=== PATIENT | female | born 1935 | race Caucasian/White ===

== ENCOUNTER 2020-02-01 04:36 | Observation (INO) ==
[2020-02-01 06:01] LABS: ALT 15 U/L (7-52); AST 25 U/L (13-39); Albumin 3.5 g/dL (3.2-5.2); Albumin/Globulin Ratio 1.3 (1-3); Alkaline Phosphatase 50 U/L (34-104); Anion Gap 9 mmol/L (2-11); BUN/Creatinine Ratio 20.6 (8-20); Blood Urea Nitrogen 20 mg/dL (6-24); CO2 Carbon Dioxide 27 mmol/L (22-32); Chloride 105 mmol/L (101-111); EGFR Non-African American 54.6 (>60); Globulin 2.6 g/dL (2-4); Glucose 91 mg/dL (70-100); Potassium 3.6 mmol/L (3.5-5.0); Sodium 141 mmol/L (135-145); Total Protein 6.1 g/dL (6.4-8.9)
[2020-02-01 06:04] LABS: ABS Eosinophils 0.1 10^3/ul (0-0.6); ABS Lymphocytes 0.6 10^3/ul (1.0-4.8); ABS Monocytes 0.5 10^3/ul (0-0.8); ABS Neutrophils 4.7 10^3/ul (1.5-7.7); Eosinophil % 1.7 %; Hematocrit 15 % (35-47); Hemoglobin 5.1 g/dL (12.0-16.0); Lymphocyte % 9.9 %; Mean Corpuscular HGB Conc 34 g/dL (31-36); Mean Corpuscular Hemoglobin 32 pg (27-31); Mean Corpuscular Volume 95 fL (80-97); Mean Platelet Volume 9.4 fL (7.4-10.4); Nucleated Red Blood Cells % 0.1; Red Blood Count 1.57 10^6 /uL (3.70-4.87); Red Cell Distribution Width 15 % (10-15); White Blood Count 5.8 10^3/uL (3.5-10.8)
[2020-02-01 06:07] LABS: Troponin I 0.05 ng/mL (<0.03)
[2020-02-01 07:31] LABS: ABS Basophils 0.1 10^3/ul (0-0.2); ABS Eosinophils 0.2 10^3/ul (0-0.6); ABS Lymphocytes 1.5 10^3/ul (1.0-4.8); ABS Monocytes 1.3 10^3/ul (0-0.8); ABS Neutrophils 11.5 10^3/ul (1.5-7.7); Eosinophil % 1.3 %; Hematocrit 34 % (35-47); Hemoglobin 11.2 g/dL (12.0-16.0); Lymphocyte % 10.1 %; Mean Corpuscular HGB Conc 33 g/dL (31-36); Mean Corpuscular Hemoglobin 31 pg (27-31); Mean Corpuscular Volume 93 fL (80-97); Mean Platelet Volume 11.3 fL (7.4-10.4); Platelet Count 108 10^3/uL (150-450); Red Blood Count 3.66 10^6 /uL (3.70-4.87); Red Cell Distribution Width 15 % (10-15); White Blood Count 14.6 10^3/uL (3.5-10.8)
[2020-02-01 09:21] LABS: Troponin I 0.17 ng/mL (<0.03)
[2020-02-01] MEDS ORDERED: Iodixanol (CONTRAST) 320 MG/ML 100 ML SDV IV ONE (10:27)
[2020-02-01 11:37] LABS: INR 2.82 (0.82-1.09)
[2020-02-01 12:08] LABS: Troponin I 0.21 ng/mL (<0.03)
[2020-02-01] MEDS ORDERED: Heparin DRIP 25,000 UNITS BAG 25,000 UNITS/500 ML BAG IV SCH (14:45)
[2020-02-01] MEDS ORDERED: Heparin 5000 UNITS/ML 1 mL VIAL IV SCH (15:00)
[2020-02-01 15:19] LABS: Cholesterol 140 mg/dL; HDL Cholesterol 59.9 mg/dL; LDL Cholesterol 69 mg/dL; Triglycerides 58 mg/dL
[2020-02-01 15:21] LABS: Troponin I 0.13 ng/mL (<0.03)
[2020-02-01 15:55] LABS: ABS Basophils 0.1 10^3/ul (0-0.2); ABS Eosinophils 0.3 10^3/ul (0-0.6); ABS Lymphocytes 1.7 10^3/ul (1.0-4.8); ABS Monocytes 0.9 10^3/ul (0-0.8); ABS Neutrophils 7.7 10^3/ul (1.5-7.7); Eosinophil % 2.6 %; Hematocrit 37 % (35-47); Hemoglobin 12.2 g/dL (12.0-16.0); Lymphocyte % 15.6 %; Mean Corpuscular HGB Conc 33 g/dL (31-36); Mean Corpuscular Hemoglobin 31 pg (27-31); Mean Corpuscular Volume 94 fL (80-97); Red Blood Count 3.98 10^6 /uL (3.70-4.87); Red Cell Distribution Width 15 % (10-15); White Blood Count 10.7 10^3/uL (3.5-10.8)
[2020-02-01 16:19] LABS: EGFR African American 69.3 (>60); EGFR Non-African American 57.3 (>60)
[2020-02-01 16:42] LABS: Platelet Count Platelets clumped. 10^3/uL (150-450)
[2020-02-02 04:42] LABS: Hematocrit 34 % (35-47); Hemoglobin 11.2 g/dL (12.0-16.0); Mean Corpuscular HGB Conc 33 g/dL (31-36); Mean Corpuscular Hemoglobin 31 pg (27-31); Mean Corpuscular Volume 93 fL (80-97); Red Blood Count 3.63 10^6 /uL (3.70-4.87); Red Cell Distribution Width 15 % (10-15); White Blood Count 6.7 10^3/uL (3.5-10.8)
[2020-02-02 04:44] LABS: Activated Partial Thrombo Time 86.7 seconds (26.0-38.0); INR 2.46 (0.82-1.09)
[2020-02-02 04:52] LABS: BUN/Creatinine Ratio 20.5 (8-20); Calcium 8.7 mg/dL (8.6-10.3); EGFR African American 79.1 (>60); EGFR Non-African American 65.3 (>60); Potassium 3.9 mmol/L (3.5-5.0)
[2020-02-02 05:17] LABS: ABS Basophils 0.1 10^3/ul (0-0.2); ABS Eosinophils 0.4 10^3/ul (0-0.6); ABS Lymphocytes 1.6 10^3/ul (1.0-4.8); ABS Monocytes 0.5 10^3/ul (0-0.8); ABS Neutrophils 4.1 10^3/ul (1.5-7.7); Eosinophil % 5.7 %; Lymphocyte % 24.1 %; Platelet Count Platelets clumped. 10^3/uL (150-450)
[2020-02-02 07:55] LABS: Platelet Count Platelets clumped. 10^3/uL (150-450)
[2020-02-02] MEDS: Aspirin EC 81 mg TAB.EC (enteric coated) PO SCH (10:01)
[2020-02-03 06:00] LABS: INR 1.76 (0.82-1.09)
[2020-02-03] MEDS: Aspirin EC 81 mg TAB.EC (enteric coated) PO SCH (09:38)
[2020-02-03 11:30] VITALS: BP 126/53
== END 2020-02-03 15:00 | disposition home or self-care (01) ==
LOC: MED 04:36 → ED 04:36 → MED 14:58 → MEDTELE 02-02 06:13
PROVIDERS: ADMIT Internal Medicine; ATTEND Internal Medicine

== ENCOUNTER 2021-06-13 16:27 | Observation (INO) ==
[2021-06-13 19:49] LABS: INR 1.75 (0.86-1.15)
[2021-06-13 20:07] LABS: Hematocrit 31 % (35-47); Hemoglobin 9.8 g/dL (12.0-16.0); Mean Corpuscular HGB Conc 32 g/dL (31-36); Mean Corpuscular Hemoglobin 27 pg (27-31); Mean Corpuscular Volume 84 fL (80-97); Red Blood Count 3.68 10^6 /uL (3.70-4.87); Red Cell Distribution Width 17 % (10-15); White Blood Count 7.8 10^3/uL (3.5-10.8)
[2021-06-13 20:21] LABS: Albumin 3.6 g/dL (3.2-5.2); Albumin/Globulin Ratio 1.9 (1-3); C Reactive Protein 6.66 mg/L (<8.01); Calcium 9.3 mg/dL (8.6-10.3); Globulin 1.9 g/dL (2-4); Potassium 4.3 mmol/L (3.5-5.0); Total Bilirubin 0.8 mg/dL (0.2-1.0); Total Protein 5.5 g/dL (6.4-8.9); eGFR CKD-EPI 64.8 (>60)
[2021-06-13 20:32] LABS: ABS Basophils 0.1 10^3/ul (0-0.2); ABS Monocytes 0.5 10^3/ul (0-0.8); ABS Neutrophils 6.2 10^3/ul (1.5-7.7); Eosinophil % 0.1 %; Lymphocyte % 12.3 %; Nucleated Red Blood Cells % 0.1; Platelet Count Platelets clumped. 10^3/uL (150-450)
[2021-06-13 21:33] LABS: High Sensitivity Troponin 1 Hr 50 pg/mL (<15)
[2021-06-13] MEDS ORDERED: Furosemide 20 mg/2 ml IV VIAL IV ONE (23:00)
[2021-06-13] MEDS ORDERED: Nitro 2% OINT (Nitroglycerin) 1 INCH/PAK TOPICAL ONE (23:21)
[2021-06-13 23:45] LABS: High Sensitivity Troponin 3 Hr 66 pg/mL (<15)
[2021-06-14 05:50] LABS: Urine Appearance Clear; Urine Bilirubin Negative (Negative); Urine Blood Negative (Negative); Urine Color Straw; Urine Glucose Negative (Negative); Urine Ketones Negative (Negative); Urine Nitrite Negative (Negative); Urine Protein Negative (Negative); Urine Specific Gravity 1.005 (1.002-1.030); Urine Urobilinogen Negative (Negative)
[2021-06-14 05:56] LABS: ABS Eosinophils 0.1 10^3/ul (0-0.6); ABS Lymphocytes 1.7 10^3/ul (1.0-4.8); ABS Monocytes 0.9 10^3/ul (0-0.8); ABS Neutrophils 5.7 10^3/ul (1.5-7.7); Eosinophil % 0.7 %; Hematocrit 29 % (35-47); Hemoglobin 9.4 g/dL (12.0-16.0); Mean Corpuscular HGB Conc 33 g/dL (31-36); Mean Corpuscular Hemoglobin 27 pg (27-31); Mean Corpuscular Volume 83 fL (80-97); Nucleated Red Blood Cells % 0.1; Red Blood Count 3.44 10^6 /uL (3.70-4.87); Red Cell Distribution Width 17 % (10-15); White Blood Count 8.3 10^3/uL (3.5-10.8)
[2021-06-14 06:26] LABS: Calcium 8.9 mg/dL (8.6-10.3); Potassium 3.9 mmol/L (3.5-5.0); eGFR CKD-EPI 55.5 (>60)
[2021-06-14 07:17] LABS: Platelet Count Platelets clumped. 10^3/uL (150-450)
[2021-06-14] MEDS: Cholecalciferol (VIT D3) 1,000 unit TAB PO SCH (08:24)
[2021-06-14] MEDS: Aspirin EC 81 mg TAB.EC (enteric coated) PO SCH (08:24)
[2021-06-14] MEDS ORDERED: Furosemide 20 mg/2 ml IV VIAL IV ONE (17:27)
[2021-06-15 07:09] LABS: ABS Eosinophils 0.1 10^3/ul (0-0.6); ABS Lymphocytes 1.8 10^3/ul (1.0-4.8); ABS Monocytes 0.8 10^3/ul (0-0.8); Hematocrit 32 % (35-47); Hemoglobin 10.2 g/dL (12.0-16.0); Lymphocyte % 23.5 %; Mean Corpuscular HGB Conc 32 g/dL (31-36); Mean Corpuscular Hemoglobin 27 pg (27-31); Mean Corpuscular Volume 84 fL (80-97); Red Blood Count 3.78 10^6 /uL (3.70-4.87); Red Cell Distribution Width 17 % (10-15); White Blood Count 7.6 10^3/uL (3.5-10.8)
[2021-06-15 07:17] LABS: Potassium 3.7 mmol/L (3.5-5.0); eGFR CKD-EPI 71.7 (>60)
[2021-06-15 07:46] LABS: Platelet Count Platelets clumped. 10^3/uL (150-450)
[2021-06-15] MEDS: Cholecalciferol (VIT D3) 1,000 unit TAB PO SCH (09:24)
[2021-06-15] MEDS: Aspirin EC 81 mg TAB.EC (enteric coated) PO SCH (09:25)
[2021-06-15 12:20] VITALS: BP 120/72
== END 2021-06-15 14:08 | disposition home or self-care (01) ==
LOC: EDHOLD 16:27 → ED 16:27 → SUATTDRO 22:22 → EDHOLD 06-14 09:50 → MEDTELE 06-14 11:49
PROVIDERS: ADMIT Hospitalist; ATTEND Internal Medicine

== ENCOUNTER 2021-07-15 08:50 | Inpatient (IN) ==
[2021-07-15 09:30] LABS: ABS Lymphocytes 0.6 10^3/ul (1.0-4.8); ABS Monocytes 0.5 10^3/ul (0-0.8); ABS Neutrophils 9.3 10^3/ul (1.5-7.7); Eosinophil % 0.3 %; Hematocrit 29 % (35-47); Hemoglobin 8.9 g/dL (12.0-16.0); Lymphocyte % 5.5 %; Mean Corpuscular HGB Conc 31 g/dL (31-36); Mean Corpuscular Hemoglobin 25 pg (27-31); Mean Corpuscular Volume 82 fL (80-97); Mean Platelet Volume 10.2 fL (7.4-10.4); Platelet Count 100 10^3/uL (150-450); Red Blood Count 3.56 10^6 /uL (3.70-4.87); Red Cell Distribution Width 17 % (10-15); White Blood Count 10.4 10^3/uL (3.5-10.8)
[2021-07-15 09:39] LABS: INR 2.11 (0.86-1.15)
[2021-07-15 10:08] LABS: Albumin 3.4 g/dL (3.2-5.2); Albumin/Globulin Ratio 1.5 (1-3); Calcium 9.1 mg/dL (8.6-10.3); Globulin 2.2 g/dL (2-4); Potassium 4.1 mmol/L (3.5-5.0); Total Protein 5.6 g/dL (6.4-8.9); eGFR CKD-EPI 51.2 (>60)
[2021-07-15 10:57] LABS: High Sensitivity Troponin 1 Hr 33 pg/mL (<15)
[2021-07-15] MEDS ORDERED: Furosemide 40 mg/4 ml IV VIAL IV SLOW PU ONE (11:19)
[2021-07-15] MEDS ORDERED: Nitro 2% OINT (Nitroglycerin) 1 INCH/PAK ONE (11:24)
[2021-07-15] MEDS ORDERED: Nitro 2% OINT (Nitroglycerin) 1 INCH/PAK TOPICAL ONE (11:27)
[2021-07-15] MEDS ORDERED: nitroGLYCERIN DRIP 25,000 MCG/250 ML BTL IV ONE (11:28)
[2021-07-15] MEDS ORDERED: nitroGLYCERIN DRIP 25,000 MCG/250 ML BTL IV SCH (13:00)
[2021-07-15 13:20] LABS: Folate 18.4 ng/mL (5.90-24.80)
[2021-07-15 13:57] LABS: Corrected Retic Count 1.3 % (0.5-1.5); Hematocrit for Retic CNT 29 % (35-47); Immature Retic Fraction 0.49; RBC Retic Count 3.59 10^6/uL (3.70-4.87)
[2021-07-15 17:00] LABS: Hematocrit 27 % (35-47); Hemoglobin 8.5 g/dL (12.0-16.0)
[2021-07-15] MEDS ORDERED: Furosemide 40 mg/4 ml IV VIAL IV SLOW PU SCH (17:00)
[2021-07-15 20:32] LABS: Magnesium 2.4 mg/dL (1.9-2.7)
[2021-07-15 20:37] LABS: Phosphorus 3.3 mg/dL (2.5-5.0)
[2021-07-15 22:07] LABS: Hematocrit 28 % (35-47); Hemoglobin 8.6 g/dL (12.0-16.0)
[2021-07-16] MEDS ORDERED: Metoprolol Tartrate 5 mg VIAL 5 ml VIAL (1 mg/ml) IV ONE (01:25)
[2021-07-16 05:15] LABS: INR 1.92 (0.86-1.15)
[2021-07-16 05:17] LABS: Hematocrit 28 % (35-47); Hemoglobin 8.5 g/dL (12.0-16.0); Mean Corpuscular HGB Conc 31 g/dL (31-36); Mean Corpuscular Hemoglobin 25 pg (27-31); Mean Corpuscular Volume 81 fL (80-97); Red Blood Count 3.44 10^6 /uL (3.70-4.87); Red Cell Distribution Width 17 % (10-15); White Blood Count 7.8 10^3/uL (3.5-10.8)
[2021-07-16 05:18] LABS: ABS Basophils 0.1 10^3/ul (0-0.2); ABS Eosinophils 0.1 10^3/ul (0-0.6); ABS Lymphocytes 1.3 10^3/ul (1.0-4.8); ABS Monocytes 0.7 10^3/ul (0-0.8); ABS Neutrophils 5.7 10^3/ul (1.5-7.7); Eosinophil % 1.6 %; Lymphocyte % 16.8 %
[2021-07-16 05:45] LABS: Calcium 8.5 mg/dL (8.6-10.3); Magnesium 2.3 mg/dL (1.9-2.7); Potassium 3.5 mmol/L (3.5-5.0); eGFR CKD-EPI 54.9 (>60)
[2021-07-16 06:08] LABS: Platelet Morphology Clumped
[2021-07-16 06:09] LABS: Anisocytosis 1+; Polychromasia 1+
[2021-07-16] MEDS ORDERED: Potassium Chloride LIQUID 20 MEQ/15 ML LIQUID PO ONE (06:11)
[2021-07-16] MEDS ORDERED: Potassium Chlor 20 meq TAB.ER PO ONE (06:57)
[2021-07-16] MEDS: CMCS: Calcitonin NASAL(NF) 200 UNITS/SPRAY NASAL.SPR ALT NARE SCH (07:41)
[2021-07-16] MEDS ORDERED: Furosemide 40 mg/4 ml IV VIAL IV SLOW PU ONE (08:35)
[2021-07-17 07:11] LABS: Calcium 9.2 mg/dL (8.6-10.3); Hematocrit 29 % (35-47); Hemoglobin 9.1 g/dL (12.0-16.0); Magnesium 2.3 mg/dL (1.9-2.7); Mean Corpuscular HGB Conc 32 g/dL (31-36); Mean Corpuscular Hemoglobin 26 pg (27-31); Mean Corpuscular Volume 81 fL (80-97); Potassium 3.8 mmol/L (3.5-5.0); Red Blood Count 3.57 10^6 /uL (3.70-4.87); Red Cell Distribution Width 17 % (10-15); White Blood Count 7.7 10^3/uL (3.5-10.8); eGFR CKD-EPI 59.1 (>60)
[2021-07-17 07:13] LABS: ABS Eosinophils 0.1 10^3/ul (0-0.6); ABS Lymphocytes 1.4 10^3/ul (1.0-4.8); ABS Monocytes 0.7 10^3/ul (0-0.8); ABS Neutrophils 5.3 10^3/ul (1.5-7.7); Eosinophil % 1.6 %; Lymphocyte % 18.8 %
[2021-07-17] MEDS: CMCS: Calcitonin NASAL(NF) 200 UNITS/SPRAY NASAL.SPR ALT NARE SCH (09:37)
[2021-07-17 09:41] LABS: Platelet Count Platelets clumped. 10^3/uL (150-450)
[2021-07-17] MEDS ORDERED: Furosemide 40 mg/4 ml IV VIAL IV ONE (09:41)
[2021-07-17] MEDS: Iron Sucrose 200 MG in NS 0.9% 100 ml BAG 100 ML IVPB SCH (12:24)
[2021-07-18] MEDS: Iron Sucrose 200 MG in NS 0.9% 100 ml BAG 100 ML IVPB SCH (09:24)
[2021-07-18] MEDS: CMCS: Calcitonin NASAL(NF) 200 UNITS/SPRAY NASAL.SPR ALT NARE SCH (09:24)
[2021-07-18] MEDS ORDERED: Polyethylene Glycol 3350 17 GM PACKET PO PRN (09:33)
[2021-07-18] MEDS ORDERED: Magnesium Hydroxide LIQ 30 ML UDC PO PRN (09:33)
[2021-07-18] MEDS ORDERED: Senna TAB 8.6 mg TAB PO PRN (09:33)
[2021-07-18] MEDS: Magnesium Hydroxide LIQ 30 ML UDC PO SCH ×2 (12:30→20:36)
[2021-07-19 06:19] LABS: Calcium 9.3 mg/dL (8.6-10.3); Potassium 4.1 mmol/L (3.5-5.0); eGFR CKD-EPI 55.5 (>60)
[2021-07-19] MEDS: CMCS: Calcitonin NASAL(NF) 200 UNITS/SPRAY NASAL.SPR ALT NARE SCH (08:55)
[2021-07-19] MEDS: Magnesium Hydroxide LIQ 30 ML UDC PO SCH ×2 (08:57→21:06)
[2021-07-19] MEDS: Iron Sucrose 200 MG in NS 0.9% 100 ml BAG 100 ML IVPB SCH (09:00)
[2021-07-19 09:08] LABS: ABS Basophils 0.1 10^3/ul (0-0.2); ABS Eosinophils 0.1 10^3/ul (0-0.6); ABS Lymphocytes 1.6 10^3/ul (1.0-4.8); ABS Monocytes 0.7 10^3/ul (0-0.8); ABS Neutrophils 6.5 10^3/ul (1.5-7.7); Eosinophil % 1.3 %; Hematocrit 30 % (35-47); Hemoglobin 9.5 g/dL (12.0-16.0); Lymphocyte % 18.3 %; Mean Corpuscular HGB Conc 32 g/dL (31-36); Mean Corpuscular Hemoglobin 26 pg (27-31); Mean Corpuscular Volume 81 fL (80-97); Nucleated Red Blood Cells % 0.1; Platelet Count Platelets clumped. 10^3/uL (150-450); Red Blood Count 3.72 10^6 /uL (3.70-4.87); Red Cell Distribution Width 17 % (10-15)
[2021-07-19] MEDS: Fluticasone NASAL SPRAY 50MCG 16 gm SPRAY BTL BOTH NARES SCH (21:06)
[2021-07-20] MEDS: CMCS: Calcitonin NASAL(NF) 200 UNITS/SPRAY NASAL.SPR ALT NARE SCH (08:41)
[2021-07-20] MEDS: Fluticasone NASAL SPRAY 50MCG 16 gm SPRAY BTL BOTH NARES SCH (08:42)
[2021-07-20] MEDS: Iron Sucrose 200 MG in NS 0.9% 100 ml BAG 100 ML IVPB SCH (08:42)
[2021-07-20 10:06] LABS: Rapid COVID-19 Molecular Undetected (Undetected)
[2021-07-21 06:49] LABS: ABS Eosinophils 0.1 10^3/ul (0-0.6); ABS Lymphocytes 1.2 10^3/ul (1.0-4.8); ABS Neutrophils 8.4 10^3/ul (1.5-7.7); Eosinophil % 1.3 %; Hematocrit 31 % (35-47); Hemoglobin 9.7 g/dL (12.0-16.0); Lymphocyte % 10.9 %; Mean Corpuscular HGB Conc 32 g/dL (31-36); Mean Corpuscular Hemoglobin 26 pg (27-31); Mean Corpuscular Volume 82 fL (80-97); Nucleated Red Blood Cells % 0.1; Red Blood Count 3.74 10^6 /uL (3.70-4.87); Red Cell Distribution Width 17 % (10-15); White Blood Count 10.7 10^3/uL (3.5-10.8)
[2021-07-21 07:02] LABS: Calcium 9.5 mg/dL (8.6-10.3); eGFR CKD-EPI 56.9 (>60)
[2021-07-21 07:54] LABS: Magnesium 2.1 mg/dL (1.9-2.7)
[2021-07-21 08:32] LABS: Platelet Count Platelets clumped. 10^3/uL (150-450)
[2021-07-21] MEDS ORDERED: Propofol 10 MG/ML 20 ML BTL ONE (11:49)
[2021-07-21] MEDS ORDERED: Lidocaine 4% TOPICAL 50 ML TOP.SOLN ONE (11:50)
[2021-07-21] MEDS: Iron Sucrose 200 MG in NS 0.9% 100 ml BAG 100 ML IVPB SCH (14:29)
[2021-07-21] MEDS: Fluticasone NASAL SPRAY 50MCG 16 gm SPRAY BTL BOTH NARES SCH (15:51)
[2021-07-21] MEDS: CMCS: Calcitonin NASAL(NF) 200 UNITS/SPRAY NASAL.SPR ALT NARE SCH (15:52)
[2021-07-22] MEDS: CMCS: Calcitonin NASAL(NF) 200 UNITS/SPRAY NASAL.SPR ALT NARE SCH (09:12)
[2021-07-22] MEDS: Fluticasone NASAL SPRAY 50MCG 16 gm SPRAY BTL BOTH NARES SCH (09:12)
[2021-07-22 16:15] LABS: TSH Ultra Thyroid Stim Horm 1.87 mcIU/mL (0.34-5.60)
[2021-07-23 07:32] LABS: Calcium 9.1 mg/dL (8.6-10.3); Potassium 4.2 mmol/L (3.5-5.0); eGFR CKD-EPI 55.2 (>60)
[2021-07-23 08:01] LABS: ABS Eosinophils 0.2 10^3/ul (0-0.6); ABS Lymphocytes 1.3 10^3/ul (1.0-4.8); ABS Monocytes 0.8 10^3/ul (0-0.8); ABS Neutrophils 7.7 10^3/ul (1.5-7.7); Eosinophil % 1.5 %; Hematocrit 30 % (35-47); Hemoglobin 9.5 g/dL (12.0-16.0); Lymphocyte % 13.2 %; Mean Corpuscular HGB Conc 32 g/dL (31-36); Mean Corpuscular Hemoglobin 26 pg (27-31); Mean Corpuscular Volume 82 fL (80-97); Nucleated Red Blood Cells % 0.1; Platelet Count Platelets clumped. 10^3/uL (150-450); Red Blood Count 3.62 10^6 /uL (3.70-4.87); Red Cell Distribution Width 17 % (10-15)
[2021-07-23] MEDS: CMCS: Calcitonin NASAL(NF) 200 UNITS/SPRAY NASAL.SPR ALT NARE SCH (08:45)
[2021-07-23] MEDS: Fluticasone NASAL SPRAY 50MCG 16 gm SPRAY BTL BOTH NARES SCH (08:45)
[2021-07-23 12:58] LABS: Rapid COVID-19 Molecular Detected (Undetected)
[2021-07-24] MEDS: Fluticasone NASAL SPRAY 50MCG 16 gm SPRAY BTL BOTH NARES SCH (09:58)
[2021-07-24] MEDS: CMCS: Calcitonin NASAL(NF) 200 UNITS/SPRAY NASAL.SPR ALT NARE SCH (09:59)
[2021-07-25 07:59] LABS: ABS Eosinophils 0.1 10^3/ul (0-0.6); ABS Monocytes 0.8 10^3/ul (0-0.8); ABS Neutrophils 3.8 10^3/ul (1.5-7.7); Eosinophil % 1.8 %; Hematocrit 28 % (35-47); Hemoglobin 8.9 g/dL (12.0-16.0); Lymphocyte % 17.9 %; Mean Corpuscular HGB Conc 32 g/dL (31-36); Mean Corpuscular Hemoglobin 26 pg (27-31); Mean Corpuscular Volume 83 fL (80-97); Red Blood Count 3.39 10^6 /uL (3.70-4.87); Red Cell Distribution Width 18 % (10-15); White Blood Count 5.7 10^3/uL (3.5-10.8)
[2021-07-25 08:18] LABS: Platelet Count Platelets clumped. 10^3/uL (150-450)
[2021-07-25 08:30] LABS: C Reactive Protein 12.4 mg/L (<8.01); Potassium 4.1 mmol/L (3.5-5.0); eGFR CKD-EPI 60.3 (>60)
[2021-07-25] MEDS: Fluticasone NASAL SPRAY 50MCG 16 gm SPRAY BTL BOTH NARES SCH (08:59)
[2021-07-25] MEDS: CMCS: Calcitonin NASAL(NF) 200 UNITS/SPRAY NASAL.SPR ALT NARE SCH (09:00)
[2021-07-25 09:54] LABS: Calcium 8.7 mg/dL (8.6-10.3)
[2021-07-26] MEDS: Fluticasone NASAL SPRAY 50MCG 16 gm SPRAY BTL BOTH NARES SCH (08:30)
[2021-07-26] MEDS: CMCS: Calcitonin NASAL(NF) 200 UNITS/SPRAY NASAL.SPR ALT NARE SCH (08:30)
[2021-07-26 15:11] VITALS: BP 130/68
== END 2021-07-26 18:35 | disposition short-term general hospital (02) | DRG 291 ==
LOC: ED 08:50 → SUATTDRO 12:30 → EDHOLD 12:30 → ICU 12:52 → MEDTELE 07-16 12:45
PROVIDERS: ADMIT Internal Medicine; ATTEND Student in an Organized Health Care Education/Training Program
PROC: O.GIEGD (2021-07-21 11:25)

== ENCOUNTER 2021-08-31 05:04 | Inpatient (IN) ==
[2021-08-31 05:44] LABS: ABS Lymphocytes 0.6 10^3/ul (1.0-4.8); ABS Monocytes 0.3 10^3/ul (0-0.8); ABS Neutrophils 9.5 10^3/ul (1.5-7.7); Eosinophil % 0.3 %; Hematocrit 28 % (35-47); Mean Corpuscular HGB Conc 32 g/dL (31-36); Mean Corpuscular Hemoglobin 26 pg (27-31); Mean Corpuscular Volume 80 fL (80-97); Mean Platelet Volume 10.3 fL (7.4-10.4); Platelet Count 110 10^3/uL (150-450); Red Cell Distribution Width 21 % (10-15); White Blood Count 10.5 10^3/uL (3.5-10.8)
[2021-08-31 05:51] LABS: INR 1.82 (0.86-1.15)
[2021-08-31 06:09] LABS: High Sens Troponin Baseline 673 pg/mL (<15)
[2021-08-31 06:40] LABS: ALT 45 U/L (7-52); Albumin 2.9 g/dL (3.2-5.2); Albumin/Globulin Ratio 1.1 (1-3); Alkaline Phosphatase 66 U/L (35-149); Blood Urea Nitrogen 39 mg/dL (6-24); CO2 Carbon Dioxide 28 mmol/L (22-32); Calcium 8.3 mg/dL (8.6-10.3); Chloride 104 mmol/L (101-111); Globulin 2.6 g/dL (2-4); Glucose 94 mg/dL (70-100); Sodium 141 mmol/L (135-145); Total Protein 5.5 g/dL (6.4-8.9); eGFR CKD-EPI 46.1 (>60)
[2021-08-31] MEDS ORDERED: Iohexol 350 (CONTRAST) 500 ML MDV IV ONE (06:51)
[2021-08-31 07:01] LABS: Anion Gap 9 mmol/L (2-11)
[2021-08-31 07:27] LABS: High Sensitivity Troponin 1 Hr 711 pg/mL (<15)
[2021-08-31] MEDS ORDERED: LORazepam 2 mg VIAL 1 ml IV PUSH ONE (07:30)
[2021-08-31] MEDS ORDERED: Lorazepam PYXIS KEY PRN (07:30)
[2021-08-31 07:43] LABS: Urine Appearance Cloudy; Urine Bilirubin Negative (Negative); Urine Blood 1+ (Negative); Urine Color Yellow; Urine Glucose Negative (Negative); Urine Ketones Negative (Negative); Urine Nitrite Negative (Negative); Urine Protein Negative (Negative); Urine Specific Gravity 1.034 (1.002-1.030); Urine Urobilinogen Negative (Negative)
[2021-08-31] MEDS ORDERED: NS 0.9% 1000 ml BAG 1,000 ML IV ONE (07:46)
[2021-08-31 07:47] LABS: Urine Bacteria Absent (Absent); Urine Red Blood Cell 2+(6-10/hpf) (Absent); Urine Squamous Epithelial Cell Present (Absent); Urine White Blood Cell Trace(0-5/hpf) (Absent)
[2021-08-31] MEDS ORDERED: NS 0.9% 1000 ml BAG 1,000 ML IV SCH (08:00)
[2021-08-31 09:25] LABS: PCO2 Arterial 34 mmHg (35-45); PO2 Arterial 71 mmHg (80-100)
[2021-08-31] MEDS ORDERED: Iodixanol (CONTRAST) 320 MG/ML 100 ML SDV IV ONE (10:04)
[2021-08-31 10:06] LABS: Potassium Redraw 3.9 mmol/L (3.5-5.0)
[2021-08-31] MEDS ORDERED: Ondansetron 4 mg VIAL 2 MG/ML 2 ml VIAL IV ONE (11:53)
[2021-08-31] MEDS ORDERED: Heparin DRIP 25,000 UNITS BAG 25,000 UNITS/500 ML BAG IV SCH (12:15)
[2021-08-31] MEDS ORDERED: Heparin 5000 UNITS/ML 1 mL VIAL IV SCH (13:00)
[2021-08-31 13:11] LABS: ABS Lymphocytes 0.5 10^3/ul (1.0-4.8); ABS Monocytes 0.6 10^3/ul (0-0.8); ABS Neutrophils 9.6 10^3/ul (1.5-7.7); Eosinophil % 0.2 %; Hematocrit 25 % (35-47); Hemoglobin 7.9 g/dL (12.0-16.0); Lymphocyte % 4.6 %; Mean Corpuscular HGB Conc 31 g/dL (31-36); Mean Corpuscular Hemoglobin 26 pg (27-31); Mean Corpuscular Volume 82 fL (80-97); Mean Platelet Volume 9.5 fL (7.4-10.4); Platelet Count 109 10^3/uL (150-450); Red Blood Count 3.08 10^6 /uL (3.70-4.87); Red Cell Distribution Width 21 % (10-15); White Blood Count 10.8 10^3/uL (3.5-10.8)
[2021-08-31 13:46] LABS: eGFR CKD-EPI 52.6 (>60)
[2021-08-31] MEDS ORDERED: Morphine 2 MG/ML SYRINGE IV ONE ×2 (13:49→16:42)
[2021-08-31] MEDS: Morphine 2 MG/ML SYRINGE IV PRN ×2 (20:22→23:58)
[2021-09-01 02:48] LABS: ABS Lymphocytes 0.9 10^3/ul (1.0-4.8); ABS Monocytes 0.6 10^3/ul (0-0.8); ABS Neutrophils 9.5 10^3/ul (1.5-7.7); Eosinophil % 0.1 %; Hematocrit 23 % (35-47); Hemoglobin 7.1 g/dL (12.0-16.0); Lymphocyte % 7.9 %; Mean Corpuscular HGB Conc 31 g/dL (31-36); Mean Corpuscular Hemoglobin 25 pg (27-31); Mean Corpuscular Volume 81 fL (80-97); Mean Platelet Volume 10.1 fL (7.4-10.4); Platelet Count 55 10^3/uL (150-450); Red Blood Count 2.88 10^6 /uL (3.70-4.87); Red Cell Distribution Width 21 % (10-15)
[2021-09-01] MEDS ORDERED: Vancomycin 1,500 MG in NS 0.9% 250 ml 250 ML IVPB ONE (04:15)
[2021-09-01] MEDS: Morphine 2 MG/ML SYRINGE IV PRN ×4 (05:07→22:48)
[2021-09-01] MEDS ORDERED: Morphine 4 MG/ML VIAL (1 ml) IV ONE (06:34)
[2021-09-01 08:44] LABS: ABS Basophils 0.1 10^3/ul (0-0.2); ABS Lymphocytes 0.7 10^3/ul (1.0-4.8); ABS Monocytes 0.6 10^3/ul (0-0.8); ABS Neutrophils 9.9 10^3/ul (1.5-7.7); Hematocrit 22 % (35-47); Hemoglobin 6.8 g/dL (12.0-16.0); Lymphocyte % 6.4 %; Mean Corpuscular HGB Conc 31 g/dL (31-36); Mean Corpuscular Hemoglobin 25 pg (27-31); Mean Corpuscular Volume 81 fL (80-97); Mean Platelet Volume 10.3 fL (7.4-10.4); Platelet Count 71 10^3/uL (150-450); Red Blood Count 2.67 10^6 /uL (3.70-4.87); Red Cell Distribution Width 20 % (10-15); White Blood Count 11.3 10^3/uL (3.5-10.8)
[2021-09-01] MEDS ORDERED: Cholecalciferol (VIT D3) 1,000 unit TAB PO SCH (09:00)
[2021-09-01] MEDS ORDERED: Aspirin EC 81 mg TAB.EC (enteric coated) PO SCH (09:00)
[2021-09-01 09:23] LABS: Albumin 2.6 g/dL (3.2-5.2); Albumin/Globulin Ratio 1.2 (1-3); Globulin 2.2 g/dL (2-4); Potassium 3.9 mmol/L (3.5-5.0); Total Bilirubin 1.8 mg/dL (0.2-1.0); Total Protein 4.8 g/dL (6.4-8.9); eGFR CKD-EPI 56.6 (>60)
[2021-09-01] MEDS ORDERED: Vancomycin 1,000 MG in NS 0.9% 250 ml 250 ML IVPB ONE (09:47)
[2021-09-01] MEDS ORDERED: LORazepam 2 mg VIAL 1 ml IV PUSH ONE (09:53)
[2021-09-01] MEDS ORDERED: Lorazepam PYXIS KEY PRN ×2 (09:53→10:44)
[2021-09-01] MEDS ORDERED: Lorazepam PYXIS KEY ONE (09:55)
[2021-09-01] MEDS ORDERED: LORazepam 2 mg VIAL 1 ml ONE (09:56)
[2021-09-01] MEDS ORDERED: Vancomycin per Pharmacy 1 EA NOTE FOLLOW UP SCH (10:00)
[2021-09-01] MEDS ORDERED: Metoprolol Tartrate 5 mg VIAL 5 ml VIAL (1 mg/ml) IV PRN (10:42)
[2021-09-01] MEDS: methylPREDNISolone SOD SUCC 40 mg/ml 1 ml VIAL IV SCH (11:25)
[2021-09-01] MEDS: Pantoprazole VIAL 40 MG VIAL IV SCH (11:25)
[2021-09-01] MEDS: Ampicillin ADVAN 2 GM in NS 0.9% 100 ml BAG 100 ML IVPB SCH ×3 (11:26→22:48)
[2021-09-01 12:14] LABS: Platelet Count 90 10^3/ul (150-450)
[2021-09-01 12:20] LABS: Activated Partial Thrombo Time 33.7 seconds (26.0-38.0); Fibrinogen 337.9 mg/dL (110.8-404.3)
[2021-09-01 15:01] LABS: Schistocytes ABSENT
[2021-09-01] MEDS ORDERED: [UNRECOGNIZED DRUG - OTHER] TOPICAL ONE (15:30)
[2021-09-01] MEDS ORDERED: THROMBIN 20000 UNIT TOPICAL ONE (15:30)
[2021-09-01] MEDS: LORazepam 2 mg VIAL 1 ml IV PUSH PRN ×2 (15:58→21:00)
[2021-09-01 17:59] LABS: Hematocrit 20 % (35-47); Hemoglobin 6.4 g/dL (12.0-16.0)
[2021-09-01 19:41] LABS: Magnesium 2.1 mg/dL (1.9-2.7); Phosphorus 3.5 mg/dL (2.5-5.0)
[2021-09-02] MEDS: LORazepam 2 mg VIAL 1 ml IV PUSH PRN ×7 (01:01→23:03)
[2021-09-02] MEDS: Ampicillin ADVAN 2 GM in NS 0.9% 100 ml BAG 100 ML IVPB SCH ×4 (04:36→22:39)
[2021-09-02 04:52] LABS: ABS Lymphocytes 0.6 10^3/ul (1.0-4.8); ABS Monocytes 0.3 10^3/ul (0-0.8); ABS Neutrophils 9.2 10^3/ul (1.5-7.7); Hematocrit 27 % (35-47); Hemoglobin 9.2 g/dL (12.0-16.0); Lymphocyte % 5.7 %; Mean Corpuscular HGB Conc 34 g/dL (31-36); Mean Corpuscular Hemoglobin 28 pg (27-31); Mean Corpuscular Volume 84 fL (80-97); Mean Platelet Volume 10.6 fL (7.4-10.4); Platelet Count 67 10^3/uL (150-450); Red Blood Count 3.26 10^6 /uL (3.70-4.87); Red Cell Distribution Width 19 % (10-15); White Blood Count 10.1 10^3/uL (3.5-10.8)
[2021-09-02 05:12] LABS: Calcium 7.7 mg/dL (8.6-10.3); Potassium 4.2 mmol/L (3.5-5.0); eGFR CKD-EPI 60.3 (>60)
[2021-09-02] MEDS: methylPREDNISolone SOD SUCC 40 mg/ml 1 ml VIAL IV SCH (08:24)
[2021-09-02] MEDS ORDERED: NS 0.9% 100 ml BAG 100 ML ONE (10:44)
[2021-09-02] MEDS: Pantoprazole VIAL 40 MG VIAL IV SCH (10:49)
[2021-09-02 19:52] LABS: HIT ELISA 0.066 OD (<0.400); Heparin PF4 Antibody Interp Negative (Negative)
[2021-09-03] MEDS: LORazepam 2 mg VIAL 1 ml IV PUSH PRN ×3 (03:25→16:29)
[2021-09-03] MEDS: Ampicillin ADVAN 2 GM in NS 0.9% 100 ml BAG 100 ML IVPB SCH ×2 (04:10→10:41)
[2021-09-03 05:18] LABS: ABS Lymphocytes 0.3 10^3/ul (1.0-4.8); ABS Monocytes 0.3 10^3/ul (0-0.8); ABS Neutrophils 10.1 10^3/ul (1.5-7.7); Hematocrit 27 % (35-47); Lymphocyte % 3.2 %; Mean Corpuscular HGB Conc 33 g/dL (31-36); Mean Corpuscular Hemoglobin 28 pg (27-31); Mean Corpuscular Volume 84 fL (80-97); Mean Platelet Volume 9.7 fL (7.4-10.4); Platelet Count 101 10^3/uL (150-450); Red Blood Count 3.25 10^6 /uL (3.70-4.87); Red Cell Distribution Width 20 % (10-15); White Blood Count 10.8 10^3/uL (3.5-10.8)
[2021-09-03 05:27] LABS: INR 1.2 (0.86-1.15)
[2021-09-03 05:51] LABS: Albumin 2.8 g/dL (3.2-5.2); Albumin/Globulin Ratio 1.2 (1-3); Calcium 8.4 mg/dL (8.6-10.3); Globulin 2.4 g/dL (2-4); Potassium 4.5 mmol/L (3.5-5.0); Total Bilirubin 1.7 mg/dL (0.2-1.0); Total Protein 5.2 g/dL (6.4-8.9); eGFR CKD-EPI 43.8 (>60)
[2021-09-03] MEDS ORDERED: Fondaparinux 5 MG/0.4 ML SYRINGE SUBCUT ONE (06:00)
[2021-09-03] MEDS: methylPREDNISolone SOD SUCC 40 mg/ml 1 ml VIAL IV SCH (10:41)
[2021-09-03] MEDS ORDERED: Morphine 10 MG/ML VIAL (1 ml) IV ONE (14:18)
[2021-09-03] MEDS ORDERED: Morphine PCA ADULT 5 MG/ML 30 ML PCA SCH (14:30)
[2021-09-03 19:55] VITALS: BP 77/39
== END 2021-09-03 19:32 | disposition expired | DRG 871 ==
LOC: ED 05:04 → EDHOLD 12:04 → SUATTDRO 12:04 → MEDTELE 20:45 → ICU 09-01 09:28
PROVIDERS: ADMIT Internal Medicine; ATTEND Student in an Organized Health Care Education/Training Program